=== PATIENT | female | born 1985 | race Caucasian/White ===

== ENCOUNTER 2016-09-12 11:15 | Emergency (ER) | payer OTHER ==
[2016-09-12] MEDS ORDERED: TYLENOL 325 MG PO ONE (11:30)
--- NOTE | 2016-09-12 11:34 | ERPHSYRPT ---
- History of Present Illness Time Seen by Provider: 09/12/16 11:25 Source: patient Exam Limitations: no limitations Patient Subjective Stated Complaint: PT REPORTS STEPPING INTO HOLE IN A YARD LAST NIGHT-INJURY TO RIGHT FOOT-REPROTS PAIN RADIATES TO KNEE Triage Nursing Assessment: PT PINK WARM ET DRY-NO OBVIOUS DEFORMITY-PEDAL PULSE REGULAR ET STRONG Physician History: This is a 30-year-old white female arrives with complaint of pain in her right foot which radiates of her right leg symptoms since last night around 2:00 in the morning patient states she stepped in a hole. Patient denies any other complaints . past medical history includes Anxiety, depression Past surgical history includes tonsillectomy and adenoidectomy also cholecystectomy. Method of Injury: other (stepped in a hole last night) Occurred: hours ago (10 hours ago) Lower Extremities Pain: leg: right, foot: right Modifying Factors: Improves With: nothing Associated Symptoms: none Allergies/Adverse Reactions: Penicillins Allergy (Severe, Verified 09/12/16 11:23) CHILDHOOD clemastine fumarate [From Tavist-1] Allergy (Mild, Verified 09/12/16 11:23) Rash ketorolac tromethamine [From Toradol] Allergy (Mild, Verified 09/12/16 11:23) Itching ondansetron HCl [From Zofran] Allergy (Mild, Verified 09/12/16 11:23) Rash Home Medications: No Home Meds 1 ea UD 09/12/16 [History] Hx Tetanus, Diphtheria Vaccination/Date Given: No Hx Influenza Vaccination/Date Given: Yes Hx Pneumococcal Vaccination/Date Given: No Immunizations Up to Date: Yes - Review of Systems Constitutional: No Fever, No Chills Eyes: No Symptoms Ears, Nose, & Throat: No Symptoms Respiratory: No Cough, No Dyspnea Cardiac: No Chest Pain, No Edema, No Syncope Abdominal/Gastrointestinal: No Abdominal Pain, No Nausea, No Vomiting, No Diarrhea Genitourinary Symptoms: No Dysuria Musculoskeletal: Other (right foot pain radiating up patient's right leg) Skin: No Rash Neurological: No Dizziness, No Focal Weakness, No Sensory Changes Psychological: No Symptoms Endocrine: No Symptoms All Other Systems: Reviewed and Negative - Past Medical History Pertinent Past Medical History: No Neurological History: No Pertinent History ENT History: No Pertinent History Cardiac History: No Pertinent History Respiratory History: No Pertinent History Endocrine Medical History: No Pertinent History Musculoskeletal History: No Pertinent History GI Medical History: No Pertinent History History: No Pertinent History Psycho-Social History: Anxiety, Depression, Other Female Reproductive Disorders: No Pertinent History Other Medical History: pt states she has been having this type of abdominal pain for 5 years. possible manic or bipolar - Past Surgical History Past Surgical History: Yes Neuro Surgical History: No Pertinent History Cardiac: No Pertinent History Respiratory: No Pertinent History Gastrointestinal: No Pertinent History Genitourinary: No Pertinent History Musculoskeletal: No Pertinent History Female Surgical History: No Pertinent History Other Surgical History: tonsillectomy - Social History Smoking Status: Current every day smoker How long have you smoked: YRS Exposure to second hand smoke: No Drug Use: none Patient Lives Alone: No - Female History Hx Last Menstrual Period: LAST MONTH Hx Now: (on Mirena) - Nursing Vital Signs Nursing Vital Signs: Initial Vital Signs Temperature 97.7 F Temperature Source Oral Pulse Rate 84 Respiratory Rate 22 Blood Pressure [] 129/76 Pain Intensity 15 - Physical Exam General Appearance: mild distress Eyes, Ears, Nose, Throat Exam: moist mucous membranes Neck Exam: non-tender, supple Cardiovascular/Respiratory Exam: chest non-tender, normal breath sounds, regular rate/rhythm, no respiratory distress Gastrointestinal/Abdominal Exam: non-tender, guarding Back Exam: normal inspection, No vertebral tenderness Hips Exam: bilateral: non-tender, normal inspection, normal range of motion, no evidence of injury Legs Exam: bilateral leg: non-tender, normal inspection, normal range of motion , no evidence of injury Knees Exam: bilateral knee: non-tender, normal inspection, normal range of motion, no evidence of injury Ankle Exam: bilateral ankle: non-tender, normal inspection, normal range of motion, no evidence of injury Foot Exam: right foot: other (right foottender with palpation dorsally no obvious swelling decreased range of motion right foot and ankle secondary to pain, good capillary refill all toes sensation intact all toes), left foot: non- tender, normal inspection, normal range of motion, no evidence of injury Neuro/Tendon Exam: normal sensation, normal motor functions Mental Status Exam: alert, oriented x 3, cooperative Skin Exam: normal color, warm, dry SpO2 Interpretation: normal (97%) SpO2: 97 Oxygen Delivery: Room Air - Course Nursing assessment & vital signs reviewed: Yes - Radiology Exams Right Foot X-ray Interpretation: Discussed w/ radiologist (x-ray right foot: Tiny cuboid bone islands. No other bony, articular, or soft tissue abnormalities) Right Lower Leg X-ray Interpretation: Discussed w/ radiologist, Negative, No Fracture, No Subluxation Ordered Tests: Active Orders 24 hr Category Date Time Status Yaron Bandage Application -[facility] STAT Care 09/12/16 12:19 Active Crutches STAT Care 09/12/16 12:19 Active Splint STAT Care 09/12/16 12:19 Active FOOT (MINIMUM 3 VIEWS) Stat Exams 09/12/16 11:29 Completed LOWER LEG Stat Exams 09/12/16 11:29 Completed Medication Summary Discontinued Medications Generic Name Dose Route Start Last Admin Trade Name Paola PRN Reason Stop Dose Admin Acetaminophen 650 mg 09/12/16 11:30 09/12/16 11:52 Tylenol 325 Mg PO 09/12/16 11:31 650 mg STAT ONE Administration Acetaminophen Confirm 09/12/16 11:37 Tylenol 325 Mg Administered 09/12/16 11:38 Dose 650 mg .ROUTE .STK-MED ONE Acetaminophen Confirm 09/12/16 11:53 Tylenol 325 Mg Administered 09/12/16 11:54 Dose 650 mg .ROUTE .STK-MED ONE Acetaminophen/Hydrocodone Bitart 1 tab 09/12/16 12:18 [place] 5/325 Mg PO 09/12/16 12:19 STAT ONE - Progress Progress: improved Progress Note: 09/12/16 12:21 30-year-old white female arrives with complaint of pain in her right foot radiating up her right leg symptoms since last night after stepping in a hole. Patient without obvious swelling or edema she does complain of tenderness on the dorsal right foot and decreased range of motion right foot and ankle. X-ray the patient's right foot demonstrates tiny cuboid bone islands no other bony articular soft tissue abnormalities are noted. X-ray of the patient's right tibia-fibula are negative. Patient was initially given Tylenol for pain. She apparently did not feel that this was adequate so I have given her [place] orally Will go ahead and wrap the foot with Yaron wrap and on crutches weightbearing as tolerated Will write for a limited amount of [place] [facility] for pain. - Departure Time of Disposition: 12:24 Departure Disposition: Home Clinical Impression: Right foot pain Right foot sprain Qualifiers: Encounter type: initial encounter Qualified Code(s): S93.601A - Unspecified sprain of right foot, initial encounter Condition: Fair Critical Care Time: No Additional Instructions: Ice and elevate your right foot 24-48 hours. Crutches weightbearing as tolerated. Use a firm soled shoe. [place] 5/325 #10 one orally every 4-6 hours as needed for pain. Follow-up with your family Dr. symptoms are worse, no better in 48 hours, or persist longer than one week. Return for acute distress or for severe symptoms. Prescriptions: Hydrocodone Bit/Acetaminophen [[place] 5/325Mg] 1 tab PO Q4-6HPRN PRN #10 tablet PRN Reason: Pain
[2016-09-12] MEDS ORDERED: TYLENOL 325 MG ONE ×2 (11:37→11:53)
--- NOTE | 2016-09-12 12:09 | XRAY ---
Indication: Pain following injury. Comparison: None 2 views of the right lower leg demonstrate normal bones, articulation, and soft tissues.
--- NOTE | 2016-09-12 12:11 | XRAY ---
Indication: Pain following injury. Comparison: None 3 nonweightbearing views of the right foot demonstrates tiny cuboid bone island. No other bony, articular, or soft tissue abnormalities.
[2016-09-12] MEDS ORDERED: NORCO 5/325 MG PO ONE (12:18)
[2016-09-12] MEDS ORDERED: NORCO 5/325 MG ONE (12:21)
[2016-09-12 12:35] VITALS: BP 106/65; PULSE 82; O2SAT 96
== END 2016-09-12 12:37 | disposition home or self-care (01) ==
LOC: ED 11:15
DX: S93.601A Unspecified sprain of right foot, initial encounter (principal); M79.671 Pain in right foot; W17.2XXA Fall into hole, initial encounter
CPT/HCPCS: 73590; 73630; 99283; 99284; A9270-GY

== ENCOUNTER 2022-05-03 09:33 | Emergency (ER) | payer OTHER ==
[2022-05-03 09:48] VITALS: O2SAT 99
[2022-05-03] MEDS ORDERED: NORCO 5/325 MG PO ONE ×2 (09:51→11:13)
[2022-05-03] MEDS ORDERED: CLEOCIN 150 MG CAPSULE PO ONE (09:52)
[2022-05-03] MEDS ORDERED: CLEOCIN 150 MG CAPSULE ONE ×2 (09:55→11:17)
[2022-05-03] MEDS ORDERED: NORCO 5/325 MG ONE ×2 (09:56→11:17)
[2022-05-03] MEDS ORDERED: PHENERGAN 25 MG PO ONE ×2 (10:14→11:14)
[2022-05-03] MEDS ORDERED: PHENERGAN 25 MG ONE ×2 (10:14→11:18)
[2022-05-03 10:48] VITALS: BP 126/64; PULSE 100
--- NOTE | 2022-05-03 10:59 | ERPHSYRPT ---
- History of Present Illness Time Seen by Provider: 05/03/22 09:52 Source: patient Exam Limitations: no limitations Patient Subjective Stated Complaint: Toothache Triage Nursing Assessment: Patient ambulated back to ED. NO SOB. She is alert and oriented. Right jaw is swollen. Gums in right lower mouth swollen. Physician History: 36 years old female with history of dental caries with periodontal disease presented in the ER with chief complaint of increasing pain and swelling right lower jaw for the last couple of days and woke up this morning with worsening of swelling making it difficult to open her mouth with moderate to severe sharp pain. No fever or chills reported. Timing/Duration: abrupt onset, days (2) Severity: moderate ENT Location: dental Prearrival Treatment: over the counter meds Associated Symptoms: facial pain/swelling, tooth pain Allergies/Adverse Reactions: Penicillins Allergy (Severe, Verified 05/03/22 09:38) CHILDHOOD clemastine fumarate [From Tavist-1] Allergy (Mild, Verified 05/03/22 09:38) Rash ketorolac tromethamine [From Toradol] Allergy (Mild, Verified 05/03/22 09:38) Itching ondansetron HCl [From Zofran] Allergy (Mild, Verified 05/03/22 09:38) Rash Home Medications: No Home Meds [No Home Meds] 1 yomi EASTON UD 09/12/16 [History] Hx Tetanus, Diphtheria Vaccination/Date Given: Yes Hx Influenza Vaccination/Date Given: No Hx Pneumococcal Vaccination/Date Given: No Immunizations Up to Date: Yes Travel Risk - International Travel Have you traveled outside of the country in past 3 weeks: No - Coronavirus Screening Are you exhibiting any of the following symptoms?: No Close contact with a COVID-19 positive Pt in past 14-21 Days: No - Vaccine Status Have you recieved a Covid-19 vaccination: No - Review of Systems Constitutional: No Symptoms Eyes: No Symptoms Ears, Nose, & Throat: No Symptoms Respiratory: No Symptoms Cardiac: No Symptoms Abdominal/Gastrointestinal: No Symptoms Genitourinary Symptoms: No Symptoms Musculoskeletal: No Symptoms Skin: No Symptoms Neurological: No Symptoms Psychological: No Symptoms Endocrine: No Symptoms Hematologic/Lymphatic: No Symptoms - Past Medical History Pertinent Past Medical History: No Neurological History: No Pertinent History ENT History: No Pertinent History Cardiac History: No Pertinent History Respiratory History: No Pertinent History Endocrine Medical History: No Pertinent History Musculoskeletal History: No Pertinent History GI Medical History: Gallbladder Disease History: No Pertinent History Psycho-Social History: Anxiety, Depression, Other Female Reproductive Disorders: No Pertinent History Other Medical History: pt states she has been having this type of abdominal pain for 5 years. possible manic or bipolar - Past Surgical History Past Surgical History: Yes Neuro Surgical History: No Pertinent History Cardiac: No Pertinent History Respiratory: No Pertinent History Gastrointestinal: Cholecystectomy Genitourinary: No Pertinent History Musculoskeletal: No Pertinent History Female Surgical History: No Pertinent History Other Surgical History: tonsillectomy - Social History Smoking Status: Current every day smoker How long have you smoked: 10 years Exposure to second hand smoke: No Drug Use: marijuana Patient Lives Alone: No - Female History Hx Now: No - Nursing Vital Signs Nursing Vital Signs: Initial Vital Signs Temperature 99.8 F 05/03/22 09:40 Pulse Rate 112 H 05/03/22 09:40 Respiratory Rate 18 05/03/22 09:40 Blood Pressure 122/67 05/03/22 09:40 O2 Sat by Pulse Oximetry 99 05/03/22 09:40 Pain Scale Pain Intensity 10 - Physical Exam General Appearance: no apparent distress, alert Eye Exam: bilateral eye: normal inspection, PERRL, EOMI Ear Exam: bilateral ear: auricle normal, canal normal, TM normal Nasal Exam: normal inspection Throat Exam: normal, pharynx normal, dental tenderness (right lower premolar area firm , tender nonfluctuant), mandibular swelling Neck Exam: normal inspection, non-tender, supple, full range of motion Cardiovascular/Respiratory Exam: normal breath sounds, regular rate/rhythm Neurologic Exam: alert, oriented x 3, cooperative, specialist wound care II-XII nml as tested Skin Exam: normal color SpO2 Interpretation: normal SpO2: 99 O2 Delivery: Room Air Ordered Tests: Medication Summary Generic Name Dose Route Start Last Admin Trade Name Freq PRN Reason Stop Dose Admin Clindamycin HCl 300 mg 05/03/22 15:00 05/03/22 11:18 Clindamycin Hcl 150 Mg Capsule PO 06/02/22 14:59 300 mg TID ZOHRA Administration Discontinued Medications Generic Name Dose Route Start Last Admin Trade Name Freq PRN Reason Stop Dose Admin Hydrocodone Bitart/Acetaminophen 2 tab 05/03/22 09:51 05/03/22 09:56 Hydrocodone/Apap 5/325 1 Tab Tablet PO 05/03/22 09:52 2 tab STAT ONE Administration Hydrocodone Bitart/Acetaminophen Confirm 05/03/22 09:56 Hydrocodone/Apap 5/325 1 Tab Tablet Administered 05/03/22 09:57 Dose 2 tab .ROUTE .STK-MED ONE Hydrocodone Bitart/Acetaminophen 2 tab 05/03/22 11:13 05/03/22 11:24 Hydrocodone/Apap 5/325 1 Tab Tablet PO 05/03/22 11:14 2 tab SENT HOME W/ PATIENT ONE Administration Hydrocodone Bitart/Acetaminophen Confirm 05/03/22 11:17 Hydrocodone/Apap 5/325 1 Tab Tablet Administered 05/03/22 11:18 Dose 2 tab .ROUTE .STK-MED ONE Clindamycin HCl 300 mg 05/03/22 09:52 05/03/22 09:56 Clindamycin Hcl 150 Mg Capsule PO 05/03/22 09:53 300 mg STAT ONE Administration Clindamycin HCl Confirm 05/03/22 09:55 Clindamycin Hcl 150 Mg Capsule Administered 05/03/22 09:56 Dose 300 mg .ROUTE .STK-MED ONE Promethazine HCl 25 mg 05/03/22 10:14 05/03/22 10:15 Promethazine Hcl 25 Mg Tablet PO 05/03/22 10:15 25 mg STAT ONE Administration Promethazine HCl Confirm 05/03/22 10:14 Promethazine Hcl 25 Mg Tablet Administered 05/03/22 10:15 Dose 25 mg .ROUTE .STK-MED ONE Promethazine HCl 25 mg 05/03/22 11:14 05/03/22 11:22 Promethazine Hcl 25 Mg Tablet PO 05/03/22 11:15 25 mg STAT ONE Administration Promethazine HCl Confirm 05/03/22 11:18 Promethazine Hcl 25 Mg Tablet Administered 05/03/22 11:19 Dose 50 mg .ROUTE .STK-MED ONE - Progress Progress: improved Progress Note: 05/03/22 10:56 given symptomatic treatment and started on clindamycin . outpatient dental follow up Counseled pt/family regarding: diagnosis, need for follow-up - Departure Departure Disposition: Home Clinical Impression: Dental infection Condition: Stable Critical Care Time: No Referrals: DOCTOR,NO FAMILY [Primary Care Provider] - Follow up/PCP as directed Instructions: Tooth Abscess (DC), Dental Pain (DC) Additional Instructions: Follow-up with your dentist for reevaluation early next week. Take pain medications as needed. Return to ER for increasing swelling, intractable pain, fever chills etc. Prescriptions: Hydrocodone/Acetaminophen [Hydrocodone-Acetamin 5-325 mg] 1 tab PO Q6HPRN PRN 3 Days #12 tablet MDD 4 PRN Reason: Pain Hydrocodone/Acetaminophen [Hydrocodone-Acetamin 5-325 mg] 1 tab PO Q6HPRN PRN 3 Days #10 tablet MDD 4 PRN Reason: Pain Promethazine HCl 25 mg [Phenergan 25 mg] 25 mg PO Q8H PRN PRN #10 tablet PRN Reason: Vomiting clindamycin HCL [Clindamycin HCl] 300 mg PO QID 7 Days #28 cap clindamycin HCL [Clindamycin HCl] 300 mg PO QID 7 Days #28 cap Promethazine HCl 25 mg [Phenergan 25 mg] 25 mg PO TID PRN PRN 4 Days #12 tablet PRN Reason: Vomiting
[2022-05-03] MEDS ORDERED: CLEOCIN 150 MG CAPSULE PO SCH (15:00)
== END 2022-05-03 11:42 | disposition home or self-care (01) ==
LOC: EEVIPCON 09:33 → ED 09:33
DX: K04.7 Periapical abscess without sinus (principal); R68.84 Jaw pain; Z72.0 Tobacco use; Z79.891 Long term (current) use of opiate analgesic; Z28.310 Unvaccinated for COVID-19
CPT/HCPCS: 99283; A9270-GY